=== PATIENT | male | born 1950 | race Caucasian/White ===

== ENCOUNTER 2021-06-02 10:25 | Emergency (ER) | payer OTHER, MEDICARE ==
--- OUTSIDE RECORDS SUMMARY | 2021-06-02 10:29 | XMS REPORT | Continuity of Care Document ---
:1950 Author Organization [facility] t Address [address] [place] [address] [address]. [address] [place] [address] Care Team Providers Name Role Phone Chiquis Slaughter MD Primary Care Physician Chiquis Slaughter Attending Clinician [phone] Raul JEAN Attending Clinician Briana Bonner MD Attending Clinician Karena ALEGRE Attending Clinician RAUL Admitting Clinician Unavailable Payers Payer Name Policy Type Policy Number Effective Date Expiration Date S ource Problems Condition Condition Condition Status Onset Resolution Last Treating Co mments Source Name Details Category Date Date Treatment Clinician Date Carcinoma Carcinoma Problem Active 2020-0 [facility] [place] of of 3-03 da prostate Prostate 00:00: [facility] Hyperchole Hyperchole Problem Active 2020-0 M [facility] sterolemia sterolemia 3-03 da 00:00: [facility] Hypertensi Hypertensi Problem Active 2020-0 M [facility] ve ve 3-03 da disorder Disorder 00:00: [facility] No known No known Disease Metho di active active st problems problems Hospit a l Allergies, Adverse Reactions, Alerts This patient has no known allergies or adverse reactions. Family History Family Member Diagnosis Comments Start Date Stop Date Source Natural mother Asthma [facility] Natural mother Cancer [facility] Natural sister Diabetes [facility] Natural brother Cancer [facility] Natural father Cancer [facility] Social History Social Habit Start Date Stop Date Quantity Comments Source History of Current smoker Religious tobacco use [facility] Tobacco use and 2021-02-06 2021-02-06 Never used Religious exposure 00:00:00 00:00:00 Hospital Alcohol intake 2021-02-06 2021-02-06 Current drinker [facility] dist 00:00:00 00:00:00 of [facility] (finding) Alcohol Comment 2021-02-05 2021-02-05 1 beer/month [facility] 00:00:00 00:[facility]:00 Hospital Sex Ass[birth year] At [birth year] Religious 00:00:00 00:00:00 Hospital Smoking Status Start Date Stop Date Source Never Smoker Dorothy [facility] Former smoker 2021-02-06 00:00:00 2021-02-06 00:00:00 Method[facility] t [facility] Medications Ordered Filled Start Stop Current Ordering Indication Dosage Frequency Signature Comments Components Source Medication Medication Date Date Medication? Clinician (SIG) Name Name cetirizine Yes Take by [facility] casa 10 mg 5-[address] capsule 16:11: Hospita 20 l warfarin Yes 3mg Take 3 mg Meth casa (COUMADIN) 5-[address] 3 MG tablet 16:11: Hospit a 20 l famotidine Yes 10mg QD Take 10 mg M ethodi (PEPCID) 10 5-[address] MG tablet 16:11: daily. Hospit a 20 l acetaminoph Yes 1000mg Take 1,000 Methodi en 5-[address] (TYLENOL) 16:11: mouth as Hosp gus 500 MG 20 needed for l tablet mild pain. budesonide- Yes 2{puff} Inhale 2 Methodi formoteroL 5-[address] (SYMBICORT) 16:11: as needed. Hospita 160-4.5 20 l mcg/actuati on inhaler loratadine Yes 10mg Take 10 mg M ethodi (CLARITIN) 5-[address] 10 mg 16:11: once as Hospita tablet 20 needed for l allergies. albuterol Yes 1{puff} Q6H Inhale 1 M ethodi (PROAIR 5-[address] HFA) 90 16:11: 6 (six) Hospita mcg/actuati 20 hours as l on inhaler needed for wheezing. amLODIPine Yes Methodi (NORVASC) 5 5-16 st mg tablet 00:00: Hospita 00 l losartan Yes 50mg QD Take 50 mg Met hodi (COZAAR) 50 4-[address] MG tablet 00:00: daily. Hospit a 00 l rosuvastati 2017-09 Yes TAKE 1 Meth casa n (CRESTOR) 0-[address] 5 mg tablet 00:00: MOUTH Hospi ta 00 EVERY DAY l amlodipine amlodipine No amlodipine [place] 5 mg tablet 5 mg tablet 5 mg d a tablet [facility] Handle Outreac h Program Golytely Golytely No 2000mL BID Golytely [facility] 236 236 236 da gram-22.74 gram-22.74 gram-22.74 [facility] gram-6.74 gram-6.74 gram-6.74 al gram-5.86 gram-5.86 gram-5.86 Health gram oral gram oral gram oral Outreac solution solution solution h Take 2000 Take 2000 Take 2000 Program mL twice a mL twice a mL twice a day by oral day by oral day by route for 1 route for 1 oral route day. day. for 1 day. losartan 50 losartan 50 No losartan [place] mg tablet mg tablet 50 mg da tablet [facility] montelukast montelukast No montelukas [place] 10 mg 10 mg t 10 mg da tablet tablet tablet [facility] Outre[facility] Program rosuvastati rosuvastati No rosuvastat [place] n 5 mg n 5 mg in 5 mg da tablet tablet tablet [facility] Symbicort Symbicort No Symbicort [place] 160 mcg-4.5 160 mcg-4.5 160 d a mcg/actuati mcg/actuati mcg-4.5 [facility] on HFA on HFA mcg/actuat al aerosol aerosol ion HFA Health inhaler inhaler aerosol Outrea c inhaler h Program warfarin warfarin No warfarin [place] 6mg 2 days 6mg 2 days 6mg 2 days da a week a week a week [facility] warfarin 3 warfarin 3 No 1 warfarin 3 [place] mg tablet mg tablet mg tablet da Take 1 Take 1 Take 1 [facility] tablet as tablet as tablet as al needed by needed by needed by Health oral route. oral route. oral O utreac route. h Program Vital Signs Vital Name Observation Time Observation Value Comments Source BP Diastolic 2019-11-20 00:00:00 85 mm[Hg] [facility] m Height 2019-11-20 00:00:00 67 [in_i] [facility] BMI (Body Mass 2019-11-20 00:00:00 35.2 kg/m2 [facility] business analytics intern Index) [facility] BP Systolic 2019-11-20 00:00:00 125 mm[Hg] [facility] Body Weight 2019-11-20 00:00:00 225 [lb_av] [facility] Systolic blood 2021-02-05 15:40:00 112 mm[Hg] [facility] pressure Diastolic blood 2021-02-05 15:40:00 71 mm[Hg] [facility] pressure Heart rate 2021-02-05 15:40:00 71 /min [facility] Respiratory rate 2021-02-05 15:40:00 19 /min [facility] Oxygen saturation in 2021-02-05 15:40:00 95 /min [facility] Arterial blood by Pulse oximetry Body temperature 2021-02-05 15:03:00 36.61 [place] [facility] Body height 2021-02-05 13:00:00 172.7 cm [facility] Body weight 2021-02-05 13:00:00 99.791 kg [facility] BMI 2021-02-05 13:00:00 33.45 kg/m2 [facility] Procedures Procedure Date / Time Performing Clinician Source Performed OR FL < 1 HOUR 2021-02-05 14:50:00 Blake Funk spital INJECTION, STEROID, SPINE, 2021-02-05 14:43:00 Blake Funk [facility] LUMBAR, EPIDURAL, SINGLE HC COMPLETE BLD COUNT 2021-02-05 12:50:00 Blake Funk [facility] W/AUTO DIFF PROTHROMBIN TIME WITH INR 2021-02-05 12:50:00 Blake Funk [facility] PARTIAL THROMBOPLASTIN 2021-02-05 12:50:00 [facility] ([facility] Hernia Repair [place] [facility] Cholecystectomy [facility] Plan of Care Planned Activity Planned Date Details Comments Source Future Scheduled Test Hepatitis C screening [facility] (procedure) [code = [id number]] Future Scheduled Test COLONOSCOPY SCREENING [facility] [code = COLONOSCOPY SCREENING] Future Scheduled Test SHINGLES VACCINES (#1) [facility] [code = SHINGLES VACCINES (#1)] Future Scheduled Test INFLUENZA VACCINE [code [facility] = INFLUENZA VACCINE] Encounters Start End Encounter Admission Attending Care Care Encounter Source Date/Time Date/Time Type Type Clinicians Facility Department ID 2021-04-21 2021-04-21 Outpatient Rebecca Slaughter [facility] [id number] 00:00:00 00:00:00 Chiquis [id number] 2021-02-05 2021-02-05 Hospital [facility], 1.2.840.1 [id number] Methodi 07:14:00 11:11:00 Encounter Blake [id number] 3.430.2.7 Hospit a .3.821030 l .8 2021-02-05 2021-02-05 Anesthesia Jordana Bonner 1.2.840.1 [id number] Methodi 09:44:00 09:52:00 Event Radha Thurston [id number] 3.430.2.7 Hospit a .3.947903 l .8 2021-02-05 2021-02-05 Surgery Raul, 1.2.840.1 [id number] Methodi 09:25:00 09:40:[id number] 3.430.2.7 Hospit a .3.851934 l .8 2021-02-05 2021-02-05 Travel 1.2.840.1 [id number] Methodi 00:00:00 00:00:[id number] 3.430.2.7 0.2.7.3.698 Ho spita .3.388061 084.8 l .8 2021-02-05 2021-02-05 Outpatient RAUL [facility] [id number] [place] 00:00:00 00:00:[address] 2020-12-17 2020-12-17 Transcribe Raul, 1.2.840.1 [id number] Methodi 00:00:00 00:00:00 Orders Irfan [id number] 3.430.2.7 Hospit a .[id number] l .8 2020-11-19 2020-11-19 Outpatient Rebecca Slaughter [facility] [id number] 00:00:00 00:00:00 Chiquis [id number] 2020-10-20 2020-10-20 Outpatient Rebecca Slaughter [facility] [id number] 00:00:00 00:00:00 Chiquis [id number] 2019-11-20 2019-11-20 Pj Sim [facility] [place] - [id number] [place] 00:00:00 00:00:00 Dorothy Elias MD: [id number] [employer] [place] [address] [facility] [address] [facility] [id number] , Ph. Results Test Description Test Time Test Comments Results Result Sourc e Comments OR FL < 1 Hour 2021-02-05 EXAMINATION: OR Meth odist 18:22:11 [place] < 1 HOUR Hospital CLINICAL HISTORY: IMPRESSION:Fluoros copy was provided. No radiologist present. Please see procedure report for discussion of procedure, findings and fluoroscopic time. FLUOROSCOPIC TIME: 3.5 seconds NUMBER OF IMAGES: 1.83 mGy [id number] time Interface, Radiology Results Incoming - 02/05/2021 1:25 PM CDT EXAMINATI ON: OR FL < 1 HOURCLINICAL HISTORY:IMPRESSION :Fluoroscopy was provided. No radiologist present. Please see procedure report for discussion of procedure, findings and fluoroscopic time.FLUOROSCOPIC TIME: 3.5 secondsNUMBER OF IMAGES: 1.83 [id number] time
--- NOTE | 2021-06-02 11:56 | RAD REPORT ---
EXAM DESCRIPTION: RAD - Shoulder Left 2 View - 06/02/2021 11:47 am CLINICAL HISTORY: pain/post fall Fall, trauma, pain COMPARISON: No comparisons FINDINGS: Degenerative changes affect the glenohumeral and AC joint. Nondisplaced fracture is suspec karla involving the proximal left humeral neck and head including the greater tuberosity.
--- NOTE | 2021-06-02 13:02 | EDPHYS ---
Physician Documentation [facility] Name: Mendez Robbins Age: 70 yrs Sex: Male : 1950 Arrival Date: 06/02/2021 Time: 10:25 Bed Treatment Private MD: Rebecca Slaughter ED Physician Ramos Thomas HPI: 06/02 12:54 This 70 yrs old Male presents to ER via Ambulatory with complaints of yin Shoulder Pain. 12:54 The patient or guardian complains of decreased range of motion, pain, that is acute. yin left shoulder. Context: The problem was sustained at home, resulted from a fall. Onset: The symptoms/episode began/occurred this morning. Modifying factors: the symptoms are alleviated by remaining still, The symptoms are aggravated by lifting weight, movement, rotation of arm. Associated signs and symptoms: The patient has no apparent associated signs or symptoms. Severity of symptoms: At their worst the symptoms were moderate, in the emergency department the symptoms are unchanged. The patient has not experienced similar symptoms in the past. Historical: - Allergies: 10:54 No Known Allergies; aa5 - PMHx: 10:54 Hypertensive disorder; Factor V; DVT; PE; aa5 10:55 Allergies; Back Pain; aa5 - PSHx: 10:55 IVC filter; aa5 - Immunization history:: Client reports receiving the 2nd dose of the Covid vaccine. - Social history:: Smoking status: Patient denies any tobacco usage or history of. - Family history:: not pertinent. ROS: 12:54 Constitutional: Negative for fever, chills, and weight loss, Eyes: Negative for injury, yin pain, redness, and discharge, ENT: Negative for injury, pain, and discharge, Neck: Negative for injury, pain, and swelling, Cardiovascular: Negative for chest pain, palpitations, and edema, Respiratory: Negative for shortness of breath, cough, wheezing, and pleuritic chest pain, Abdomen/GI: Negative for abdominal pain, nausea, vomiting, diarrhea, and constipation, Back: Negative for injury and pain, : Negative for injury, bleeding, discharge, and swelling, Skin: Negative for injury, rash, and discoloration, Neuro: Negative for headache, weakness, numbness, tingling, and seizure, Psych: Negative for depression, anxiety, suicide ideation, homicidal ideation, and hallucinations, Allergy/Immunology: Negative for hives, rash, and allergies, Endocrine: Negative for neck swelling, polydipsia, polyuria, polyphagia, and marked weight changes. 12:54 MS/extremity: Positive for decreased range of motion, pain, swelling, tenderness, of the anterior aspect of left shoulder and posterior aspect of left shoulder. Exam: 12:54 Constitutional: This is a well developed, well nourished patient who is awake, alert, yin and in no acute distress. Head/Face: Normocephalic, atraumatic. Eyes: Pupils equal round and reactive to light, extra-ocular motions intact. Lids and lashes normal. Conjunctiva and sclera are non-icteric and not injected. Cornea within normal limits. Periorbital areas with no swelling, redness, or edema. ENT: Nares patent. No nasal discharge, no septal abnormalities noted. Tympanic membranes are normal and external auditory canals are clear. Oropharynx with no redness, swelling, or masses, exudates, or evidence of obstruction, uvula midline. Mucous membranes moist. Neck: Trachea midline, no thyromegaly or masses palpated, and no cervical lymphadenopathy. Supple, full range of motion without nuchal rigidity, or vertebral point tenderness. No Meningismus. Chest/axilla: Normal chest wall appearance and motion. Nontender with no deformity. No lesions are appreciated. Cardiovascular: Regular rate and rhythm with a normal S1 and S2. No gallops, murmurs, or rubs. Normal PMI, no JVD. No pulse deficits. Respiratory: Lungs have equal breath sounds bilaterally, clear to auscultation and percussion. No rales, rhonchi or wheezes noted. No increased work of breathing, no retractions or nasal flaring. Abdomen/GI: Soft, non-tender, with normal bowel sounds. No distension or tympany. No guarding or rebound. No evidence of tenderness throughout. Back: No spinal tenderness. No costovertebral tenderness. Full range of motion. Male : Normal genitalia with no discharge or lesions. Skin: Warm, dry with normal turgor. Normal color with no rashes, no lesions, and no evidence of cellulitis. Neuro: Awake and alert, GCS 15, oriented to person, place, time, and situation. Cranial nerves II-XII grossly intact. Motor strength 5/5 in all extremities. Sensory grossly intact. Cerebellar exam normal. Normal gait. Psych: Awake, alert, with orientation to person, place and time. Behavior, mood, and affect are within normal limits. 12:54 Musculoskeletal/extremity: ROM: limited active range of motion, limited passive range of motion, limited active range of motion due to pain, limited passive range of motion due to pain, Circulation is intact in all extremities. Sensation intact. Compartment Syndrome exam of affected extremity: is normal. Joints: All joints are normal except limited range of motion, pain at rest, painful range of motion. Vital Signs: 10:56 BP 117 / 84; Pulse 88; Resp 18 S; Temp 97.0(TE); Pulse Ox 98% on R/A; Weight 102.06 kg aa5 (R); Height 5 ft. 8 in. (172.72 cm) (R); 13:15 BP 117 / 74; Pulse 83; Resp 20; Pulse Ox 100% on R/A; kg 10:56 Body Mass Index 34.21 (102.06 kg, 172.72 cm) aa5 MDM: 12:41 Patient medically screened. yin 12:58 Differential diagnosis: Anterior dislocation without fracture, Posterior dislocation yin without fracture, humeral head fracture, glenoid fracture, DJD, tendonitis. Data reviewed: vital signs, nurses notes, radiologic studies, plain films. Data interpreted: clinical research monitor: rate is 88 beats/min, rhythm is regular, Pulse oximetry: on room air is 98 %. Test interpretation: by ED physician or midlevel provider: plain radiologic studies. Counseling: I had a detailed discussion with the patient and/or guardian regarding: radiology results. 06/02 10:57 Order name: Shoulder Left (2 View) XRAY; Complete Time: 12:41 aa5 06/02 12:54 Order name: Sling; Complete Time: 13:02 yin 06/02 12:54 Order name: Ice pack; Complete Time: 13:02 yin Administered Medications: 13:05 Drug: [place] (HYDROcodone-acetaminophen) 10 mg-325 mg 1 tabs Route: PO; kg 13:19 Follow up: Response: No adverse reaction kg Disposition Summary: 06/02/21 13:01 Discharge Ordered Location: Home yin Problem: new yin Symptoms: have improved yin Condition: Stable yin Diagnosis - Fall on same level, unspecified yin - Sprain of left acromioclavicular joint, initial encounter yin - Contusion of left shoulder yin Followup: yin - With: Rebecca Slaughter MD - When: 2 - 3 days - Reason: Recheck today's complaints, Continuance of care, Re-evaluation by your physician Followup: yin - With: Mychal Linda MD - When: 2 - 3 days - Reason: Recheck today's complaints, Continuance of care, Re-evaluation by your physician Discharge Instructions: - Discharge Summary Sheet yin - RICE Therapy for Routine Care of Injuries yin - Shoulder Pain yin - Acromioclavicular Separation yin - Shoulder Pain, [id number] yin - RICE Therapy for Routine Care of Injuries, [id number] yin - Shoulder Sprain yin Forms: - Medication Reconciliation Form yin - Thank You Letter yin - Antibiotic Education yin - Prescription Opioid Use yin Prescriptions: - Tylenol-Codeine #3 300 mg-30 mg Oral - take 2 tablet by ORAL route every 4-6 hours; 26 tablet; Refills: 0, Product yin Selection Permitted Signatures: Dispatcher [employer] Ramos Castle MD MD cha Calderon, Audri, RN RN aa5 Brianne Camacho RN RN kg
--- NOTE | 2021-06-02 13:02 | ER ---
Nurse's Notes [facility] Name: Mendez Robbins Age: 70 yrs Sex: Male : 1950 Arrival Date: 06/02/2021 Time: 10:25 Bed Treatment Private MD: Rebecca Slaughter Diagnosis: Fall on same level, unspecified;Sprain of left acromioclavicular joint, initial encounter;Contusion of left shoulder Presentation: 06/02 10:53 Chief complaint: Patient states: fall yesterday and c/o pain to left shoulder radiating aa5 to neck. Denies head injury. Coronavirus screen: At this time, the client does not indicate any symptoms associated with coronavirus-19. Ebola Screen: Patient negative for fever greater than or equal to 101.5 degrees Fahrenheit, and additional compatible Ebola Virus Disease symptoms. Initial Sepsis Screen: Does the patient meet any 2 criteria? No. Patient's initial sepsis screen is negative. Does the patient have a suspected source of infection? No. Patient's initial sepsis screen is negative. Risk Assessment: Do you want to hurt yourself or someone else? Patient reports no desire to harm self or others. Onset of symptoms was May 2021. 10:53 Method Of Arrival: Ambulatory aa5 10:53 Acuity: ROHINI 4 aa5 Triage Assessment: 13:20 General: Appears in no apparent distress. Behavior is calm, cooperative, appropriate kg for age. Pain: Complains of pain in left shoulder. Historical: - Allergies: 10:54 No Known Allergies; aa5 - PMHx: 10:54 Hypertensive disorder; Factor V; DVT; PE; aa5 10:55 Allergies; Back Pain; aa5 - PSHx: 10:55 IVC filter; aa5 - Immunization history:: Client reports receiving the 2nd dose of the Covid vaccine. - Social history:: Smoking status: Patient denies any tobacco usage or history of. - Family history:: not pertinent. Screenin:20 Abuse screen: Denies threats or abuse. Denies injuries from another. Nutritional kg screening: No deficits noted. Tuberculosis screening: No symptoms or risk factors identified. Fall Risk None identified. Assessment: 13:21 General: Appears in no apparent distress. Behavior is calm, cooperative, appropriate kg for age, quiet. Pain: Complains of pain in left shoulder. Vital Signs: 10:56 BP 117 / 84; Pulse 88; Resp 18 S; Temp 97.0(TE); Pulse Ox 98% on R/A; Weight 102.06 kg aa5 (R); Height 5 ft. 8 in. (172.72 cm) (R); 13:15 BP 117 / 74; Pulse 83; Resp 20; Pulse Ox 100% on R/A; kg 10:56 Body Mass Index 34.21 (102.06 kg, 172.72 cm) aa5 ED Course: 10:25 Patient arrived in ED. am2 10:26 Rebecca Slaughter MD is Private Physician. am2 10:52 Arm band placed on. aa5 10:54 Triage completed. aa5 11:47 Shoulder Left (2 View) XRAY In Process Unspecified. EDMS 12:41 Ramos Thomas MD is Attending Physician. [facility] 12:59 Rebecca Slaughter MD is Referral Physician. [facility] 13:00 Mychal Linda MD is Referral Physician. [facility] 13:19 Brianne Camacho, RN is Primary Nurse. kg 13:20 Patient has correct armband on for positive identification. kg 13:20 No provider procedures requiring assistance completed. Patient did not have IV access kg during this emergency room visit. Administered Medications: 13:05 Drug: [place] (HYDROcodone-acetaminophen) 10 mg-325 mg 1 tabs Route: PO; kg 13:19 Follow up: Response: No adverse reaction kg Outcome: 13:01 Discharge ordered by . yin 13:20 Discharged to home ambulatory, with family. kg 13:20 Condition: good 13:20 Discharge instructions given to patient, family, Instructed on discharge instructions, follow up and referral plans. Demonstrated understanding of instructions, follow-up care, medications, Prescriptions given X 1. 13:22 Patient left the ED. kg Signatures: Dispatcher [employer] EDNM Ramos Thomas MD MD cha Calderon, Audri, RN RN aa5 Anaid Robles am Brianne Camacho, RN RN kg
[2021-06-02 13:31] VITALS: TEMP 97
[2021-06-02] MEDS ORDERED: HYDROCODONE/APAP 10/325 TAB ONE (13:31)
[2021-06-02 13:33] VITALS: BP 117/74; O2SAT 100
== END 2021-06-02 13:22 | disposition home or self-care (01) ==
LOC: ER 10:25
DX: S43.52XA Sprain of left acromioclavicular joint, initial encounter (principal); S40.012A Contusion of left shoulder, initial encounter; W18.30XA Fall on same level, unspecified, initial encounter; Y92.009 Unspecified place in unspecified non-institutional (private) residence as the place of occurrence of the external cause; Z86.718 Personal history of other venous thrombosis and embolism; I10 Essential (primary) hypertension
CPT/HCPCS: 99283